=== PATIENT | female | born 1990 | race Caucasian/White ===

== ENCOUNTER 2022-02-27 11:27 | Emergency (ER) | payer OTHER, SELFPAY ==
--- NOTE | ~2022-02-27 | XR_ITS ---
EXAMINATION: XR KNEE, RIGHT CLINICAL INFORMATION: Pain COMPARISON: None TECHNIQUE: Four views of the right knee. FINDINGS: Patella appears high or patella abel. Bone alignment is otherwise normal. No fracture or dislocation is seen. There is mild degenerative change of the medial femoral tibial and patellofemoral joints. There is a small joint effusion. XR/XR knee RT 3V IMPRESSION: Patella abel. Mild degenerative changes. Small joint effusion.
[2022-02-27 11:54] VITALS: BP 168/89; PULSE 61; RESP 19; TEMP 36.6; O2SAT 98; BMI 49.6
[2022-02-27 12:19] LABS: MANUAL DIFF FLAG NO
[2022-02-27 12:21] LABS: Basophils Percent Auto 0.5 % (0-2); Eosinophils Absolute Auto 0.2 X10*3/uL (0.0-0.4); Eosinophils Percent Auto 4.2 % (0-4); Hematocrit 44.8 % (37.0-47.0); Imm Gran Abs Auto 0.01 X10*3/uL (0.00-0.03); Imm Gran Pct Auto 0.2 % (0.0-0.4); Lymphocytes Percent Auto 36.8 % (20-40); Mean Corpuscular HGB Conc 33.5 g/dl (31.0-35.0); Mean Corpuscular Hemoglobin 30.3 pg (27.0-33.0); Mean Corpuscular Volume 90.5 fL (80.0-98.0); Mean Platelet Volume 9.8 fL (9.4-12.3); Monocytes Absolute Auto 0.8 X10*3/uL (0.1-1.2); Monocytes Percent Auto 13.7 % (2-11); Neutrophils Absolute Auto 2.4 x10*3/uL (2.0-8.3); Neutrophils Percent Auto 44.6 % (45-73); Platelet Count 236 X10*3/uL (160-400); Red Blood Count 4.95 X10*6/uL (4.20-5.50); Red Cell Distribution Width 11.7 % (11.0-16.0); White Blood Count 5.5 X10*3/uL (4.8-10.8)
[2022-02-27 12:36] LABS: Anion Gap 10 (12-20); Blood Urea Nitrogen 10 mg/dL (9-16); Calcium 8.9 mg/dL (8.4-10.2); Carbon Dioxide 30 mmol/L (22-29); Chloride 105 mmol/L (96-108); Creatinine Clr Calc Pharmacy 162.1; Estimated Glomerular Filt Rate > 60; Glucose Random 96 mg/dL (60-115); Potassium 4.2 mmol/L (3.3-5.1); Sodium 141 mmol/L (135-145)
[2022-02-27 15:19] VITALS: BP 154/99; PULSE 63; RESP 18; TEMP 36.6; O2SAT 99
--- NOTE | 2022-02-27 16:28 | ED_ITS ---
HPI - General Adult General Chief complaint: General Medical Stated complaint: high blood pressure Time Seen by Provider: 02/27/22 16:28 Source: patient Mode of arrival: ambulatory Limitations: no limitations History of Present Illness HPI narrative: Patient has history of depression no history of hypertension checking her blood pressure for last 1 week on the high side 140/90 today was 174/118 also complaining of mild headache which is diffuse no nausea no vomiting no chest pain or palpitation patient parents have history of hypertension. On arrival in the ER blood pressure recheck was 162/92 patient not on any NSAID no increased stress lately Related Data Previous Rx's Medication Instructions Recorded losartan 50 mg-hydrochlorothiazide 1 tab PO DAILY #30 tabs 02/27/22 12.5 mg tablet Allergies Allergy/AdvReac Type Severity Reaction Status Date / Time amoxicillin Allergy Unknown hives Verified 06/01/18 00:00 Latex Gloves Allergy Unknown rash Uncoded 06/01/18 00:00 Review of Systems Review of Systems: Yes all other systems are reviewed and are negative [facility] Social History Social History Advance Directives: No Advance Directives Information Provided: No Physical Exam ED Vital Signs: Vital Signs - 24 hr 02/27/22 11:54 02/27/22 15:19 Temperature 98 F 97.8 F Pulse Rate 61 63 Respiratory Rate 19 18 Blood Pressure 168/89 H 154/99 H Pulse Oximetry 98 99 Oxygen Delivery Method Room Air Room Air BMI result Body Mass Index 49.6 Appearance: Alert. Oriented X3. No acute distress. Eyes: PERRLA, No Nystagmus ENT: Pharynx normal. Oral Mucosa moist Neck: Normal inspection. Neck supple. CVS: Normal heart rate and rhythm. Pulses normal. Respiratory: No respiratory distress. Equal air entry bilateral, no wheezi ng/rales/rhonchi Abdomen: Soft and nontender. Bowel sounds are present, no mass palpable, no CVA tenderness Skin: Skin warm and dry. Normal skin color. Normal skin turgor. Extremities: No lower extremity edema. No calf tenderness Neuro: Oriented X 3. No motor deficit. No sensory deficit.No cerebellar signs , cranial nerves II-XII intact Medical Decision Making MDM Narrative Medical decision making narrative: Patient Seems like has hypertension with multiple readings on the higher side wi ll start patient on losartan advised to follow-up with PCP Lab Data Lab results reviewed: Yes I reviewed the patient's lab results. Result diagrams: 02/27/22 12:15 02/27/22 12:15 Labs: Lab Results 02/27/22 02/27/22 Range/Units 12:15 12:15 WBC 5.5 (4.8-10.8) X10*3/uL RBC 4.95 (4.20-5.50) X10*6/uL Hgb 15.0 (12.0-16.0) g/dl Hct 44.8 (37.0-47.0) % MCV 90.5 (80.0-98.0) fL MCH 30.3 (27.0-33.0) pg MCHC 33.5 (31.0-35.0) g/dl RDW 11.7 (11.0-16.0) % Plt Count 236 (160-400) X10*3/uL MPV 9.8 (9.4-12.3) fL Immature Gran % (Auto) 0.2 (0.0-0.4) % Neut % (Auto) 44.6 L (45-73) % Lymph % (Auto) 36.8 (20-40) % [place] % (Auto) 13.7 H (2-11) % Eos % (Auto) 4.2 H (0-4) % Baso % (Auto) 0.5 (0-2) % Lymph # (Auto) 2.0 (1.2-4.9) X10*3/uL [place] # (Auto) 0.8 (0.1-1.2) X10*3/uL Eos # (Auto) 0.2 (0.0-0.4) X10*3/uL Baso # (Auto) 0.0 (0.0-0.2) X10*3/uL Abs Immat Gran (auto) 0.01 (0.00-0.03) X10*3/uL Absolute Neuts (auto) 2.4 (2.0-8.3) x10*3/uL Absolute Nucleated RBC 0.000 (0.0-0.012) X10*3/uL Nucleated RBC % (auto) 0.0 (0.0-0.2) /100WBC Sodium 141 (135-145) mmol/L Potassium 4.2 (3.3-5.1) mmol/L Chloride 105 (96-108) mmol/L Carbon Dioxide 30 H (22-29) mmol/L Anion Gap 10 L (12-20) BUN 10 (9-16) mg/dL Creatinine 0.75 (0.5-1.4) mg/dL Estim Creat Clear Calc 162.1 Estimated GFR > 60 Random Glucose 96 (60-115) mg/dL Calcium 8.9 (8.4-10.2) mg/dL Discharge Plan Discharge Clinical Impression: Hypertension Patient Disposition: Home, Self-Care Instructions: Hypertension (ED) Additional Instructions: Decrease salt intake Weight reduction and exercise as advised Start on blood pressure medication and check blood pressure daily should be less than 130/80 Follow up with PCP Prescriptions: New losartan-hydrochlorothiazide 50-12.5 mg tablet 1 tab PO DAILY Qty: 30 0RF
[2022-02-27 17:45] VITALS: BP 154/91; PULSE 59; RESP 16; O2SAT 99
[2022-02-27] MEDS: Losartan Potassium 50 MG TABLET PO (17:48)
== END 2022-02-27 18:03 | disposition home or self-care (01) ==
PROVIDERS: Emergency Provider Internal Medicine; PCP Internal Medicine
DX: I10 Essential (primary) hypertension (principal); M25.561 Pain in right knee
CPT/HCPCS: 36415; 73562; 80048; 85025; 99283; 99284

== ENCOUNTER 2023-02-19 10:30 | Emergency (ER) | payer OTHER, SELFPAY ==
--- NOTE | ~2023-02-19 | CT_ITS ---
CT head/brain wo IV con CLINICAL INFORMATION: Trauma COMPARISON: No prior CT scan available for comparison. TECHNIQUE: Department standard protocol. This CT examination was performed using dose optimization techniques as appropriate, variously including the following: *Automated exposure control *Adjustment of mA and/or kV according to patient size (this includes techniques or standardized protocols for targeted exams where dose is matched to indication/reason for exam; i.e. extremities or head) *Use of iterative reconstruction technique DLP: 704 mGy-cm FINDINGS: CEREBRAL HEMISPHERES: There is no evidence of intra-axial or extra-axial mass, hemorrhage or acute infarct. BRAIN PARENCHYMA: Normal hays-white matter differentiation. SUBDURAL SPACE: No bleed. BASAL GANGLIA AND PINEAL GLAND: Unremarkable VENTRICLES: Symmetric and normal in size. CEREBELLUM AND BRAINSTEM: No space-occupying mass, hemorrhage or acute infarct. CEREBELLOPONTINE ANGLES: No lesion found. ORBITS: No intraorbital mass. VESSELS: Unremarkable SKULL BASE: Unremarkable INCLUDED SINUSES AT SKULL BASE: Clear SKULL AND SKIN: No fracture or bone lesion found. CT/CT head/brain wo IV con IMPRESSION: No CT evidence of intracranial space-occupying mass, bleed or infarct.
--- NOTE | ~2023-02-19 | XR_ITS ---
EXAMINATION: XR CERVICAL SPINE CLINICAL INFORMATION: Neck pain. COMPARISON: None available. TECHNIQUE: 3 views of the cervical spine were obtained. FINDINGS: Nonspecific straightening of the cervical lordosis. Atlantooccipital and atlantoaxial articulations are maintained. No evidence of acute compression deformity or malalignment. Small well corticated osseous fragment at the anterior C5-C6 intervertebral space, favored to represent an osteophyte. Normal appearance of the posterior elements. No prevertebral soft tissue thickening. Included portions of the lung apices are clear. XR/XR cervical spine 3V IMPRESSION: 1. Nonspecific straightening of the cervical lordosis which could be positional or related with muscle spasm. 2. No acute compression deformity or malalignment. If an acute traumatic sequela is highly clinically suspected, recommend correlation with an MRI or CT of the cervical spine as clinically warranted.
--- NOTE | ~2023-02-19 | CT_ITS ---
EXAMINATION: CT cervical spine wo IV con INDICATION INFORMATION: Reason for Exam neck pain, ?osseous finding on neck xray COMPARISON: Cervical spine radiographs 02/19/2027 TECHNIQUE: Noncontrast CT examinations of the cervical spine was performed. Coronal and sagittal images were created for each examination at the technologist workstation. This CT examination was performed using dose optimization techniques as appropriate, variously including the following: *Automated exposure control *Adjustment of mA and/or kV according to patient size (this includes techniques or standardized protocols for targeted exams where dose is matched to indication/reason for exam; i.e. extremities or head) *Use of iterative reconstruction technique DLP: 620 mGy-cm FINDINGS: There is no evidence of acute cervical spine fracture. Vertebral bodies remain normal in height. Loss of the usual cervical spine lordosis. Disc space heights are maintained. No prevertebral soft tissue swelling. No cervical lymphadenopathy. Fluid secretions are noted within the oropharynx. Partial opacification of the visualized right mastoid air cells. Visualized portions of the lung apices are unremarkable. The thyroid gland is unremarkable. Limited views of the brain are unremarkable. CT/CT cervical spine wo IV con IMPRESSION: 1. No cervical spine fracture. 2. Loss of usual cervical spine lordosis which may be due to positioning or muscle spasm.
[2023-02-19 11:52] VITALS: BP 151/112; PULSE 68; RESP 16; TEMP 36.6; O2SAT 96; BMI 48.5
--- NOTE | 2023-02-19 11:55 | ED.GENADULT ---
HPI - General Adult General Chief complaint: Head Injury Stated complaint: Fall/head inj Time Seen by Provider: 02/19/23 13:45 Source: patient and RN notes reviewed Mode of arrival: ambulatory Limitations: no limitations History of Present Illness HPI narrative: This is a 33-year-old female, with a past medical history of hypertension, anxiety, and PTSD, presenting to the emergency department today for evaluation of head injury which occurred during the night last night. Patient reports that she got up at around 4:00 a.m. and tripped over a box and twisted her body and ultimately hit the posterior aspect of her head on a box that contained picture frames. She denies any loss of consciousness. She shortly went to bed afterwards, and woke up this morning with a bad headache, whooziness and nausea. patient denies any visual changes or blurred vision, she reports the wooziness feels as though she is on a boat. Patient denies any vomiting. She is not on anticoagulants. No other complaints or concerns at this time. MD complaint: Head injury Location: head Radiation: non-radiation Severity: moderate Quality: aching Pain Consistency: constant Relieving factors: none Exacerbating factors: none Associated symptoms: denies other symptoms Treatments prior to arrival: none Related Data Previous Rx's Medication Instructions Recorded losartan 50 mg-hydrochlorothiazide 1 tab PO DAILY #30 tabs 02/27/22 12.5 mg tablet cyclobenzaprine 5 mg tablet 5 mg PO TID PRN muscle spasm #10 02/19/23 tabs ibuprofen 600 mg tablet 600 mg PO Q6H PRN pain #30 tabs 02/19/23 Allergies Allergy/AdvReac Type Severity Reaction Status Date / Time amoxicillin Allergy Unknown hives Verified 06/01/18 00:00 Latex Gloves Allergy Unknown rash Uncoded 06/01/18 00:00 Review of Systems Review of Systems: Constitutional: No Weight loss, No Fever, No Chills ENT/Mouth: No Ear Pain, No Nasal Congestion, No Sinus Pain, No Hoarseness, No sore throat, No Rhinorrhea, No Swallowing Difficulty Cardiovascular: No Chest Pain, No SOB Respiratory: No Cough, No Sputum, No Wheezing Gastrointestinal: + Nausea, No Vomiting, No Diarrhea, No Constipation, No Abdominal pain Genitourinary: No Dysuria, No Urinary Frequency, No Hematuria, No Urinary Incontinence/retention, No Urgency, No Flank Pain Musculoskeletal: No joint pain, No Myalgias, No Joint Swelling Skin: No Skin Lesions, No rash Neuro: +headache, No Weakness, No Numbness, No Paresthesias Yes all other systems are reviewed and are negative Constitutional: Constitutional: Reports as per [facility] Social History Social History Alcohol intake: current Alcohol intake frequency: holidays/special occasions only Patient Tobacco Use Status: Never used Tobacco Advance Directives: No Physical Exam ED Vital Signs: Vital Signs - 24 hr 02/19/23 11:52 02/19/23 15:22 Temperature 97.9 F 98 F Pulse Rate 68 57 Respiratory Rate 16 18 Blood Pressure 151/112 H 167/86 H Pulse Oximetry 96 99 Oxygen Delivery Method Room Air Room Air BMI result Body Mass Index 48.5 Const General: cooperative, comfortable and no acute distress Orientation/consciousness: patient oriented x3 Limitations: no limitations HENMT Other: Tenderness to palpation over the occiput, no bony step-off or deformity. Head: Yes normal to inspection, Yes normocephalic, No Demarco's sign and No raccoon eyes Ears: hearing grossly normal bilaterally and TM's normal bilaterally ( no hemotympanum) General nose exam: Normal external nose present Face and sinus: Yes normal facial exam Mouth: Normal oral and palatal mucosa present, oropharynx normal and moist mucous membranes Throat: Yes posterior oropharynx normal Eyes General: appearance normal, both eyes and all related structures Eyelids: Yes eyelids normal Conjunctivae: conjunctivae normal Sclerae: sclerae normal Pupils: Equal, round and reactive pupils present EOM: EOMs intact bilaterally Neck Other: Tenderness to palpation over the left paraspinous muscles with cervical midline spine tenderness to palpation. Neck: Yes normal visual inspection, Yes full ROM and Yes no lymphadenopathy Lymphatic: no lymphadenopathy noted Chest Chest palpation & inspection: normal inspection of the chest Resp Effort & Inspection: normal respiratory effort and able to speak in complete sentences Auscultation: clear to auscultation bilaterally, no crackles, no rales, no rhonchi and no wheezes Cardio Rate: regular rate Rhythm: regular rhythm Heart sounds: S1 normal heart sound present and S2 normal heart sound present GI Inspection: Yes normal to inspection Back/Spine/Pelvis Other: tenderness to palpation along the midline cervical spine, some left-sided cervical paraspinous muscle. tenderness. Patient placed in cervical collar. Skin General skin exam: no rashes or lesions noted Trauma: no lacerations or abrasions Wounds: no wounds Neuro General: patient oriented x3, moves all extremities, no focal motor deficits and CN's II-XI intact bilaterally Cranial nerves: Yes Equal, round and reactive pupils present, Yes Nystagmus not present, Yes Normal facial strength present and Yes Midline tongue present Gait exam (Neuro): Normal gait present Motor exam (neuro): 5/5 motor strength present throughout and Pronator motor function not present Romberg Test: Negative Extrem General: Yes normal to inspection Right upper extremity: normal to inspection Left upper extremity: normal to inspection Right lower extremity: normal to inspection Left lower extremity: normal to inspection Course Course Course Narrative: JOSEPHINE- 33-year-old female past medical history significant for obesity, hypertension presents for evaluation of posterior headache. Patient reports that she tripped last night over a box and struck the back of her head. Denies any loss of consciousness. She complains of posterior headache and ?queasiness, as well as nausea. She is not on any anticoagulation. CT scan of brain ordered. Patient has no C-spine tenderness Reevaluation(s) Reevaluation #1: CT head normal. Patient medicated with Tylenol 975 mg p.o. Given patient having left-sided cervical paraspinous muscle tenderness and midline spine tenderness, and cervical collar placed. Cervical spine x-ray revealing small well corticated osseous fragment at the anterior C5-C6 intervertebral space favored to represent an osteophyte however given recent and neck pain will order CT of the cervical spine for further image of this. Time: 16:26 Reevaluation #2: Cervical spine CT return, no comment made on cervical spine CT, I called radiologist Dr. Higuera, who informed me that this finding was a osteophyte and not a fracture. Discussed these results with patient, discharge patient on muscle relaxers and ibuprofen. Given strict return precautions should her symptoms worsen. Advised good mental and physical rest for the next several days. Patient given good understanding and knowledge of discharge instructions. Patient stable for discharge. Time: 18:27 Medications Administered Discontinued Medications Generic Name Dose Route Start Last Admin Trade Name Freq PRN Reason Stop Dose Admin Acetaminophen 975 mg 02/19/23 15:51 02/19/23 15:54 Acetaminophen 325 Mg Tablet PO 02/19/23 15:52 975 mg ONCE ONE Administration Medical Decision Making Medical Decision Making [facility] Narrative: 33-year-old female presenting to the emergency department for headache and neck pain status post mechanical fall which occurred early this morning. On examination, patient is mildly hypertensive at 151/112. patient has tenderness over occiput, and mild tenderness to palpation over the midline cervical spine, given tenderness, we obtained CT head, x-ray C-spine initially. CT head was unremarkable, there was a osseous finding found on C5-C6. Given traumatic fall, obtain CT of the cervical spine for further imaging, which was unremarkable. Plan: CT head, xr c-spine Differential Diagnosis Differential Diagnoses: The differential diagnosis associated with the presentation includes Closed head injury, concussion, ICH, Cervical spine fracture Lab Data [facility] Lab Attestation statement: I reviewed the patient's lab results. Labs: Lab Results 02/19/23 Range/Units 13:46 Urine Test NEGATIVE (NEGATIVE) Radiology Impression Discussion of test interpretation with radiology: I have reviewed the radiologist's reading. Radiologist Impression: EXAMINATION: ?CT cervical spine wo IV con INDICATION INFORMATION: Reason for Exam neck pain, ?osseous finding on neck xray COMPARISON: Cervical spine radiographs 02/19/2027 TECHNIQUE: Noncontrast CT examinations of the cervical spine was performed. Coronal and sagittal images were created for each examination at the technologist workstation. This CT examination was performed using dose optimization techniques as appropriate, variously including the following: *Automated exposure control *Adjustment of mA and/or kV according to patient size (this includes techniques or standardized protocols for targeted exams where dose is matched to indication/reason for exam; i.e. extremities or head) *Use of iterative reconstruction technique DLP:? 620 mGy-cm FINDINGS: There is no evidence of acute cervical spine fracture. Vertebral bodies remain normal in height.? ? Loss of the usual cervical spine lordosis. Disc space heights are maintained. No prevertebral soft tissue swelling. No cervical lymphadenopathy. Fluid secretions are noted within the oropharynx. Partial opacification of the visualized right mastoid air cells. Visualized portions of the lung apices are unremarkable. The thyroid gland is unremarkable. Limited views of the brain are unremarkable. CT/CT cervical spine wo IV con IMPRESSION: 1.? No cervical spine fracture. 2.? Loss of usual cervical spine lordosis which may be due to positioning or muscle spasm. ? Dictated By: Renetta Higuera MD EXAMINATION: XR CERVICAL SPINE CLINICAL INFORMATION: Neck pain. COMPARISON: None available. TECHNIQUE: 3 views of the cervical spine were obtained. FINDINGS: Nonspecific straightening of the cervical lordosis. Atlantooccipital and atlantoaxial articulations are maintained. No evidence of acute compression deformity or malalignment. Small well corticated osseous fragment at the anterior C5-C6 intervertebral space, favored to represent an osteophyte. Normal appearance of the posterior elements. No prevertebral soft tissue thickening. Included portions of the lung apices are clear. XR/XR cervical spine 3V IMPRESSION: 1.? Nonspecific straightening of the cervical lordosis which could be positional or related with muscle spasm. 2.? No acute compression deformity or malalignment. ? If an acute traumatic sequela is highly clinically suspected, recommend correlation with an MRI or CT of the cervical spine as clinically warranted. ? Dictated By: Rosalee Huerta CT head/brain wo IV con CLINICAL INFORMATION: Trauma COMPARISON: No prior CT scan available for comparison. TECHNIQUE: Department standard protocol. This CT examination was performed using dose optimization techniques as appropriate, variously including the following: *Automated exposure control *Adjustment of mA and/or kV according to patient size (this includes techniques or standardized protocols for targeted exams where dose is matched to indication/reason for exam; i.e. extremities or head) *Use of iterative reconstruction technique DLP: 704 mGy-cm FINDINGS: ? CEREBRAL HEMISPHERES: There is no evidence of intra-axial or extra-axial mass, hemorrhage or acute infarct. BRAIN PARENCHYMA: Normal hays-white matter differentiation. SUBDURAL SPACE: No bleed. BASAL GANGLIA AND PINEAL GLAND: Unremarkable VENTRICLES: Symmetric and normal in size. CEREBELLUM AND BRAINSTEM: No space-occupying mass, hemorrhage or acute infarct. CEREBELLOPONTINE ANGLES: No lesion found. ORBITS: No intraorbital mass. VESSELS: Unremarkable SKULL BASE: Unremarkable INCLUDED SINUSES AT SKULL BASE: Clear SKULL AND SKIN: No fracture or bone lesion found. CT/CT head/brain wo IV con IMPRESSION: No CT evidence of intracranial space-occupying mass, bleed or infarct. ? ? Dictated By: Leela Dominguez MD Discharge Plan Discharge Clinical Impression: Closed head injury, Acute neck pain Patient Disposition: Home, Self-Care Instructions: Concussion (ED), Acute Neck Pain (ED) Additional Instructions: Your x-ray of your neck showed a small osteophyte. This is normal with degenerative changes. Your CT head and CT neck were normal. Physical and mental rest will help you heal faster. Avoid prolonged screen time. Heat or ice, gentle massage and stretching can help with your neck pain. Please take prescribed medication as directed. Please be aware that Flexeril can cause drowsiness, do not drink alcohol or drive while taking. this medication. Take ibuprofen or Tylenol as needed for pain. If any new or worsening symptoms, including but not limited to worsening headaches, vomiting, changes in mentation, dizziness, blurred vision, weakness numbness or tingling. occur please return for re-evaluation. Follow-up with your primary care physician. Prescriptions: New cyclobenzaprine 5 mg tablet 5 mg PO TID PRN (Reason: muscle spasm) Qty: 10 0RF ibuprofen 600 mg tablet 600 mg PO Q6H PRN (Reason: pain) Qty: 30 0RF No Action losartan-hydrochlorothiazide 50-12.5 mg tablet 1 tab PO DAILY Qty: 30 0RF Stand Alone Forms: Work/School Release Interventions: ED Discharge Assessment Last Done: 02/19/23 18:18 Discharge Date/Time: 02/19/23 18:18
[2023-02-19 13:58] LABS: UPreg QC Valid YES
[2023-02-19 13:59] LABS: Urine Pregnancy NEGATIVE (NEGATIVE)
--- NOTE | 2023-02-19 14:17 | PC.NURSE ---
ct complete, pt now in XR
[2023-02-19 15:22] VITALS: BP 167/86; PULSE 57; RESP 18; TEMP 36.6; O2SAT 99
[2023-02-19] MEDS: Acetaminophen 325 MG TABLET 975 MG PO (15:54)
--- NOTE | 2023-02-19 16:29 | PC.NURSE ---
PT PLACED IN C-COLLAR D/T INCIDENTAL FINDING OF FX- WELL TOLERATED BY PT
== END 2023-02-19 18:18 | disposition home or self-care (01) ==
PROVIDERS: Physician Assistant; Emergency Provider Student in an Organized Health Care Education/Training Program
DX: S09.90XA Unspecified injury of head, initial encounter (principal); W01.198A Fall on same level from slipping, tripping and stumbling with subsequent striking against other object, initial encounter; M54.2 Cervicalgia; Y93.89 Activity, other specified; Y92.012 Bathroom of single-family (private) house as the place of occurrence of the external cause; Y99.9 Unspecified external cause status
CPT/HCPCS: 70450; 72040; 72125; 81025; 99284

== ENCOUNTER 2023-02-26 07:07 | Emergency (ER) | payer OTHER, SELFPAY ==
--- NOTE | ~2023-02-26 | CT_ITS ---
EXAMINATION: CT HEAD WITHOUT CONTRAST CLINICAL INFORMATION: Worsening headache COMPARISON: 02/19/2023 TECHNIQUE: Contiguous axial imaging was performed from the skull base to vertex without intravenous administration of contrast. This CT examination was performed using dose optimization techniques as appropriate, variously including the following: *Automated exposure control *Adjustment of mA and/or kV according to patient size (this includes techniques or standardized protocols for targeted exams where dose is matched to indication/reason for exam; i.e. extremities or head) *Use of iterative reconstruction technique DLP: 735 mGy-cm FINDINGS: There is no evidence of acute intracranial hemorrhage or edematous territorial infarction. Riddle-white matter differentiation is preserved. There is no abnormal attenuation within the brain parenchyma. The ventricles are normal in morphology and size. No evidence for obstructive hydrocephalus. No abnormal mass effect or midline shift. No extra-axial fluid collections. No acute soft tissue or osseous abnormalities. The mastoid air cells are well aerated and visualized paranasal sinuses revealed mucosal thickening in the right maxillary sinus with mucus retention cyst in the ostiomeatal complex on the right, mucosal thickening of ethmoidal sinuses, bhupinder bullosa and possible polyposis of the left turbinates. There is deviation of nasal septum to the right. CT/CT head/brain wo IV con IMPRESSION: 1. No acute intracranial pathology. 2. Paranasal sinus disease.
--- NOTE | 2023-02-26 07:18 | ED_ITS ---
HPI - General Adult General Chief complaint: Eye Problems Stated complaint: stabbing pain in L eye going in teeth Time Seen by Provider: 02/26/23 07:18 Source: patient Mode of arrival: ambulatory Limitations: no limitations History of Present Illness HPI narrative: Patient is a 33 year old female with a history of hypertension and migraines presenting today for stabbing pain in the left eye. Patient suffered a co ncussion on 02/19/2023 after tripping and hitting her head directly on a box. She was seen here in the ED and treated with Ibuprofen and muscle relaxants, but has had minimal relief. Patient states that she saw her primary care physician yesterday due to severe pain at the back of her head as well as trouble turning her head and was prescribed a more potent muscle relaxant. Today, she reports changes in pain location; she endorses stabbing pain in her left eye, radiating to her upper teeth. She states that pain is constant and rates it 9/10. She admits to photophobia, nausea, and vision changes. She denies SOB, fever or chills. She reports no other acute concerns at this time. Onset (ago): day(s) (7) Location: head Radiation: other (upper teeth) Severity: mild Quality: stabbing Pain Consistency: constant Relieving factors: none Exacerbating factors: other (light and sound makes pain worse) Associated symptoms: nausea/vomiting Treatments prior to arrival: NSAID and other (muscle relaxer) Related Data Previous Rx's Medication Instructions Recorded losartan 50 mg-hydrochlorothiazide 1 tab PO DAILY #30 tabs 02/27/22 12.5 mg tablet cyclobenzaprine 5 mg tablet 5 mg PO TID PRN muscle spasm #10 02/19/23 tabs ibuprofen 600 mg tablet 600 mg PO Q6H PRN pain #30 tabs 02/19/23 doxycycline hyclate 100 mg tablet 100 mg PO BID 7 days #14 tabs 02/26/23 ondansetron 4 mg disintegrating 4 mg PO Q8H 3 days #9 tabs 02/26/23 tablet Allergies Allergy/AdvReac Type Severity Reaction Status Date / Time amoxicillin Allergy Unknown hives Verified 06/01/18 00:00 Latex Gloves Allergy Unknown rash Uncoded 06/01/18 00:00 Review of Systems Constitutional: Constitutional: Reports no additional constitutional complaints, Denies chills, Denies fever(s) and Denies night sweats Eyes: Eyes: Reports no additional eye complaints, Denies blurry vision, Denies change in vision, Denies diplopia, Denies eye discharge, Denies loss of vision and Denies eye pain ENT: Denies dizziness Cardiovascular: Cardiovascular: Reports no additional cardiovascular complaints, Denies chest pain, Denies lightheadedness, Denies Loss of Consciousness and Denies dyspnea Respiratory: Respiratory: Reports no additional respiratory complaints and Denies dyspnea Gastrointestinal: Gastrointestinal: Reports no additional gastrointestinal complaints, Denies abdominal pain, Denies melena, Denies hematochezia, Denies change in bowel habits and Denies change in stool character Genitourinary: Genitourinary: Denies hematuria, Denies urinary frequency, Denies dysuria, Denies urinary incontinence, Denies urinary hesitancy and Denies urinary urgency Musculoskeletal: Musculoskeletal: Reports no additional musculoskeletal complaints, Denies numbness and Denies tingling Neurologic: Denies dizziness, Denies loss of vision, Denies numbness and Denies tingling Psychiatric: Psychiatric: Reports no additional psychiatric complaints Endocrine: Endocrine: Reports no additional endocrine complaints Hematologic/Lymphatic: Hematologic/Lymphatic: Reports no additional hematologic/lymphatic complaints Allergic/Immunologic: Allergic/Immunologic: Reports no additional allergic/imm unologic complaints PMFSH Past Medical History Attestation statement: The following information was validated with the patient. Source: old records reviewed and nursing notes reviewed Social History Social History Alcohol intake: current Alcohol intake frequency: holidays/special occasions only Patient Tobacco Use Status: Never used Tobacco Advance Directives: No Advance Directives Information Provided: No Physical Exam ED Vital Signs: Vital Signs - 24 hr 02/26/23 07:29 Temperature 97.6 F Pulse Rate 60 Respiratory Rate 18 Blood Pressure 185/113 H Pulse Oximetry 97 Oxygen Delivery Method Room Air BMI result Body Mass Index 48.5 Const General: cooperative, no acute distress, alert and awake Nutritional Appearance: well nourished Orientation/consciousness: patient oriented x3 Limitations: no limitations HENMT Head: Yes normal to inspection and Yes atraumatic Ears: hearing grossly normal bilaterally and external ears normal General nose exam: Normal external nose present and no nasal discharge noted Face and sinus: Yes normal facial exam, No abrasion and No laceration Mouth: Normal oral and palatal mucosa present, no drooling and no muffled voice Eyes General: appearance normal, both eyes and all related structures Alignment and Position: alignment normal Periorbital: periorbital findings normal Eyelids: Yes eyelids normal Conjunctivae: conjunctivae normal Pupils: Equal, round and reactive pupils present EOM: EOMs intact bilaterally Neck Neck: Yes normal visual inspection and Yes full ROM Chest Chest palpation & inspection: normal inspection of the chest Resp Effort & Inspection: normal respiratory effort and able to speak in complete s entences Cardio Rate: regular rate Rhythm: regular rhythm Heart sounds: S1 normal heart sound present and S2 normal heart sound present GI Inspection: Yes normal to inspection Neuro General: patient oriented x3 and moves all extremities Cranial nerves: Yes Equal, round and reactive pupils present Cognition (Neuro): normal cognition Motor exam (neuro): 5/5 motor strength present throughout Sensory Exam: Normal double simultaneous stimulation for sensation Coordination: [id number] test normal Extrem General: Yes normal to inspection, Yes full ROM and Yes capillary refill normal Psych Appearance: grossly normal Mental Status: mental status grossly normal Affect: normal affect Attitude: cooperative Thought process: Normal thought process present Thought content: Normal thought content present Insight: Good insight present (Psych) Medications Administered Discontinued Medications Generic Name Dose Route Start Last Admin Trade Name Nelson PRN Reason Stop Dose Admin Diphenhydramine HCl 25 mg 02/26/23 07:37 02/26/23 07:58 Diphenhydramine Hcl 50 Mg/Ml Vial IVPUSH 02/26/23 07:38 25 mg ONCE ONE Administration Ketorolac Tromethamine 15 mg 02/26/23 09:04 02/26/23 09:21 Ketorolac Tromethamine 15 Mg/Ml Vial IVPUSH 02/26/23 09:05 15 mg ONCE ONE Administration Ondansetron HCl 4 mg 02/26/23 07:37 02/26/23 07:58 Ondansetron Hcl 4 Mg/2 Ml Vial IVPUSH 02/26/23 07:38 4 mg ONCE ONE Administration Medical Decision Making Medical Decision Making [facility] Narrative: Patient is a 33 year old assigned female at with a history of HTN and zander dante presenting to the emergency department today with a persistent headache. Patient's physical exam was unremarkable. No meningeal signs. No focal neurologic deficits. Patient's blood work was unremarkable. Patient's repeat head CT showed no acute bleed however, it did show evidence of sinus disease. I explained my physical exam findings as well as all test results to the patient. I answered all questions asked by the patient. Patient received IV Benadryl, Toradol, and Zofran which she stated helped her symptoms significantly. I stressed the importance of the patient taking her medication as prescribed. I stressed the importance of the patient following up with her primary care provider and an ENT. Patient states that she has her own ENT that she would prefer to follow up with. I stressed the importance of the patient returning to the emergency department immediately if her symptoms were to worsen or if she were to develop any dizziness, shortness of breath, difficulty breathing, chest pain, blurry vision, loss of vision, nausea, vomiting, abdominal pain, fever, chills, back pain, or any other complaints. Patient verbalized agreement and understanding with this treatment plan and discharge. Differential Diagnosis Differential Diagnoses: The differential diagnosis associated with the presentation includes migraine, concussion Admission/Observation Consideration of admission/observation: Escalation of care including admission/observation considered Patient would have been admitted to the hospital had her work up had any findin gs where hospital admission was appropriate. Lab Data MDM Lab Attestation statement: I reviewed the patient's lab results. My interpretation of these studies and their corresponding values is that they are grossly normal. 02/26/23 07:48 02/26/23 07:48 Labs: Lab Results 02/26/23 02/26/23 02/26/23 Range/Units 07:48 07:48 07:48 WBC 6.3 (4.8-10.8) X10*3/uL RBC 4.84 (4.20-5.50) X10*6/uL Hgb 14.6 (12.0-16.0) g/dl Hct 43.9 (37.0-47.0) % MCV 90.7 (80.0-98.0) fL MCH 30.2 (27.0-33.0) pg MCHC 33.3 (31.0-35.0) g/dl RDW 12.1 (11.0-16.0) % Plt Count 211 (160-400) X10*3/uL MPV 9.8 (9.4-12.3) fL Immature Gran % (Auto) 0.2 (0.0-0.4) % Neut % (Auto) 55.6 (45-73) % Lymph % (Auto) 27.4 (20-40) % Sabine % (Auto) 9.8 (2-11) % Eos % (Auto) 6.2 H (0-4) % Baso % (Auto) 0.8 (0-2) % Lymph # (Auto) 1.7 (1.2-4.9) X10*3/uL Sabine # (Auto) 0.6 (0.1-1.2) X10*3/uL Eos # (Auto) 0.4 (0.0-0.4) X10*3/uL Baso # (Auto) 0.1 (0.0-0.2) X10*3/uL Abs Immat Gran (auto) 0.01 (0.00-0.03) X10*3/uL Absolute Neuts (auto) 3.5 (2.0-8.3) x10*3/uL Absolute Nucleated RBC 0.000 (0.0-0.012) X10*3/uL Nucleated RBC % (auto) 0.0 (0.0-0.2) /100WBC ESR 10 (0-20) MM/HR Sodium 141 (135-145) mmol/L Potassium 3.7 (3.3-5.1) mmol/L Chloride 107 (96-108) mmol/L Carbon Dioxide 29 (22-29) mmol/L Anion Gap 9 L (12-20) BUN 11 (9-16) mg/dL Creatinine 0.69 (0.5-1.4) mg/dL Estim Creat Clear Calc 172.2 Estimated GFR > 60 Random Glucose 98 (60-115) mg/dL Calcium 8.9 (8.4-10.2) mg/dL Magnesium 2.0 (1.6-2.6) mg/dL Total Bilirubin 0.7 (0.0-1.0) mg/dL AST 21 (5-31) U/L ALT 32 H (0-31) U/L Alkaline Phosphatase 51 (39-117) U/L C-Reactive Protein 0.24 (< or = 0.50) mg/dL Total Protein 7.2 (6.5-8.0) g/dL Albumin 3.9 (3.5-5.0) g/dL Beta HCG, Quant mIU/mL 02/26/23 Range/Units 07:48 WBC (4.8-10.8) X10*3/uL RBC (4.20-5.50) X10*6/uL Hgb (12.0-16.0) g/dl Hct (37.0-47.0) % MCV (80.0-98.0) fL MCH (27.0-33.0) pg MCHC (31.0-35.0) g/dl RDW (11.0-16.0) % Plt Count (160-400) X10*3/uL MPV (9.4-12.3) fL Immature Gran % (Auto) (0.0-0.4) % Neut % (Auto) (45-73) % Lymph % (Auto) (20-40) % Sabine % (Auto) (2-11) % Eos % (Auto) (0-4) % Baso % (Auto) (0-2) % Lymph # (Auto) (1.2-4.9) X10*3/uL Sabine # (Auto) (0.1-1.2) X10*3/uL Eos # (Auto) (0.0-0.4) X10*3/uL Baso # (Auto) (0.0-0.2) X10*3/uL Abs Immat Gran (auto) (0.00-0.03) X10*3/uL Absolute Neuts (auto) (2.0-8.3) x10*3/uL Absolute Nucleated RBC (0.0-0.012) X10*3/uL Nucleated RBC % (auto) (0.0-0.2) /100WBC ESR (0-20) MM/HR Sodium (135-145) mmol/L Potassium (3.3-5.1) mmol/L Chloride (96-108) mmol/L Carbon Dioxide (22-29) mmol/L Anion Gap (12-20) BUN (9-16) mg/dL Creatinine (0.5-1.4) mg/dL Estim Creat Clear Calc Estimated GFR Random Glucose (60-115) mg/dL Calcium (8.4-10.2) mg/dL Magnesium (1.6-2.6) mg/dL Total Bilirubin (0.0-1.0) mg/dL AST (5-31) U/L ALT (0-31) U/L Alkaline Phosphatase (39-117) U/L C-Reactive Protein (< or = 0.50) mg/dL Total Protein (6.5-8.0) g/dL Albumin (3.5-5.0) g/dL Beta HCG, Quant < 2 mIU/mL Independent Interpretation I performed an independent interpretation of an: CT Scan Interpretation: My interpretation is in agreement with the radiologist's impression of this imaging study. EXAMINATION: CT HEAD WITHOUT CONTRAST CLINICAL INFORMATION: Worsening headache? COMPARISON: 02/19/2023 TECHNIQUE: Contiguous axial imaging was performed from the skull base to vertex without intravenous administration of contrast. This CT examination was performed using dose optimization techniques as appropriate, variously including the following: *Automated exposure control *Adjustment of mA and/or kV according to patient size (this includes techniques or standardized protocols for targeted exams where dose is matched to indication/reason for exam; i.e. extremities or head) *Use of iterative reconstruction technique DLP: 735 mGy-cm FINDINGS: There is no evidence of acute intracranial hemorrhage or edematous territorial infarction. Riddle-white matter differentiation is preserved. There is no abnormal attenuation within the brain parenchyma. The ventricles are normal in morphology and size. No evidence for obstructive hydrocephalus. No abnormal mass effect or midline shift. No extra-axial fluid collections. No acute soft tissue or osseous abnormalities. The mastoid air cells are well aerated and visualized paranasal sinuses revealed mucosal thickening in the right maxillary sinus with mucus retention cyst in the ostiomeatal complex on the right, mucosal thickening of ethmoidal sinuses, bhupinder bullosa and possible polyposis of the left turbinates. There is deviation of nasal septum to the right. ? CT/CT head/brain wo IV con IMPRESSION: 1.? No acute intracranial pathology. 2.? Paranasal sinus disease. Dictated By: Shekhar Maynard MD Signed By: Electronically signed by Shekhar Maynard MD 02/26/23 0898 Discharge Plan Discharge Clinical Impression: Concussion, Sinusitis Patient Disposition: Home, Self-Care Instructions: Sinusitis (ED), Concussion (ED) Additional Instructions: Follow up with your primary care provider and your ENT. Return to the emergency department immediately if your symptoms worsen or if you develop any dizziness, shortness of breath, difficulty breathing, chest pain, blurry vision, loss of vision, nausea, vomiting, abdominal pain, fever, chills, back pain, or any other complaints. Prescriptions: New ondansetron 4 mg tablet,disintegrating 4 mg PO Q8H 3 Days Qty: 9 0RF doxycycline hyclate 100 mg tablet 100 mg PO BID 7 Days Qty: 14 0RF No Action losartan-hydrochlorothiazide 50-12.5 mg tablet 1 tab PO DAILY Qty: 30 0RF cyclobenzaprine 5 mg tablet 5 mg PO TID PRN (Reason: muscle spasm) Qty: 10 0RF ibuprofen 600 mg tablet 600 mg PO Q6H PRN (Reason: pain) Qty: 30 0RF [place]: [facility] [place] [facility] [place] (Call to establish and follow up with a primary care provider. If you already have a primary care provider, please follow up with them.) [facility] [place] [facility] [place] [facility] (Call to establish and follow up w ith a primary care provider. If you already have a primary care provider, please follow up with them.) [facility] [place] [facility] [place]] (Call to establish and follow up with a primary care provider. If you already have a primary care provider, please follow up with them.) Stand Alone Forms: Work/School Release Print Language: Frisian
[2023-02-26 07:29] VITALS: BP 185/113; PULSE 60; RESP 18; TEMP 36.4; O2SAT 97; BMI 48.5
[2023-02-26] MEDS: ondansetron HCL 4 MG/2 ML VIAL IVPUSH (07:58)
[2023-02-26] MEDS: diphenhydrAMINE HCL 50 MG/ML VIAL 25 MG IVPUSH (07:58)
[2023-02-26 08:04] LABS: MANUAL DIFF FLAG NO
[2023-02-26 08:06] LABS: Basophils Absolute Auto 0.1 X10*3/uL (0.0-0.2); Basophils Percent Auto 0.8 % (0-2); Eosinophils Absolute Auto 0.4 X10*3/uL (0.0-0.4); Eosinophils Percent Auto 6.2 % (0-4); Hematocrit 43.9 % (37.0-47.0); Hemoglobin 14.6 g/dl (12.0-16.0); Imm Gran Abs Auto 0.01 X10*3/uL (0.00-0.03); Imm Gran Pct Auto 0.2 % (0.0-0.4); Lymphocytes Absolute Auto 1.7 X10*3/uL (1.2-4.9); Lymphocytes Percent Auto 27.4 % (20-40); Mean Corpuscular HGB Conc 33.3 g/dl (31.0-35.0); Mean Corpuscular Hemoglobin 30.2 pg (27.0-33.0); Mean Corpuscular Volume 90.7 fL (80.0-98.0); Mean Platelet Volume 9.8 fL (9.4-12.3); Monocytes Absolute Auto 0.6 X10*3/uL (0.1-1.2); Monocytes Percent Auto 9.8 % (2-11); Neutrophils Absolute Auto 3.5 x10*3/uL (2.0-8.3); Neutrophils Percent Auto 55.6 % (45-73); Platelet Count 211 X10*3/uL (160-400); Red Blood Count 4.84 X10*6/uL (4.20-5.50); Red Cell Distribution Width 12.1 % (11.0-16.0); White Blood Count 6.3 X10*3/uL (4.8-10.8)
[2023-02-26 08:25] LABS: Alanine Aminotransferase 32 U/L (0-31); Albumin Level 3.9 g/dL (3.5-5.0); Alkaline Phosphatase 51 U/L (39-117); Anion Gap 9 (12-20); Aspartate Amino Transferase 21 U/L (5-31); Bilirubin Total 0.7 mg/dL (0.0-1.0); Blood Urea Nitrogen 11 mg/dL (9-16); C Reactive Protein 0.24 mg/dL (< or = 0.50); Calcium 8.9 mg/dL (8.4-10.2); Carbon Dioxide 29 mmol/L (22-29); Chloride 107 mmol/L (96-108); Creatinine Clr Calc Pharmacy 172.2; Estimated Glomerular Filt Rate > 60; Glucose Random 98 mg/dL (60-115); Potassium 3.7 mmol/L (3.3-5.1); Sodium 141 mmol/L (135-145); Total Protein 7.2 g/dL (6.5-8.0)
[2023-02-26 08:34] LABS: HCG Quantitative < 2 mIU/mL
[2023-02-26 08:44] LABS: Erythrocyte Sedimentation Rate 10 MM/HR (0-20)
[2023-02-26] MEDS: Ketorolac Tromethamine 15 MG/ML VIAL IVPUSH (09:21)
== END 2023-02-26 10:07 | disposition home or self-care (01) ==
PROVIDERS: Physician Assistant Medical; Emergency Provider Internal Medicine
DX: S06.0X0A Concussion without loss of consciousness, initial encounter (principal); W01.198A Fall on same level from slipping, tripping and stumbling with subsequent striking against other object, initial encounter; Y93.9 Activity, unspecified; Y92.9 Unspecified place or not applicable; Y99.9 Unspecified external cause status; J32.9 Chronic sinusitis, unspecified; I10 Essential (primary) hypertension; H57.12 Ocular pain, left eye; G43.909 Migraine, unspecified, not intractable, without status migrainosus
CPT/HCPCS: 36415; 70450; 80053; 83735; 84702; 85025; 85652; 86140; 96374; 96375; 99284; J1200; J1885; J2405

== ENCOUNTER 2023-03-30 22:45 | Emergency (ER) | payer OTHER, SELFPAY ==
--- NOTE | 2023-03-30 | ECG_ITS ---
Test Reason : HTN Blood Pressure : / mmHG Vent. Rate : 065 BPM Atrial Rate : 065 BPM P-R Int : 164 ms QRS Dur : 092 ms QT Int : 392 ms P-R-T Axes : 042 030 043 degrees QTc Int : 407 ms Normal sinus rhythm with sinus arrhythmia Normal ECG No previous ECGs available Referred By: Generic ED Physician Electronically Signed By:Ajay Dugan
--- NOTE | ~2023-03-30 | XR_ITS ---
EXAMINATION: XR CHEST CLINICAL INFORMATION: Hypertension COMPARISON: None available. TECHNIQUE: Frontal view of the chest was obtained. FINDINGS: Heart size upper limits of normal. No other abnormality is noted involving the heart, lungs, mediastinum, bony thorax or soft tissues. XR/XR chest 1V IMPRESSION: No acute intrathoracic disease.
[2023-03-30 22:50] VITALS: BP 190/117; PULSE 71; RESP 18; TEMP 36.1; O2SAT 97; BMI 48.7
[2023-03-30 23:13] LABS: Basophils Absolute Auto 0.1 X10*3/uL (0.0-0.2); Basophils Percent Auto 0.7 % (0-2); Eosinophils Absolute Auto 0.5 X10*3/uL (0.0-0.4); Eosinophils Percent Auto 5.5 % (0-4); Hematocrit 42.5 % (37.0-47.0); Hemoglobin 14.1 g/dl (12.0-16.0); Imm Gran Abs Auto 0.02 X10*3/uL (0.00-0.03); Imm Gran Pct Auto 0.2 % (0.0-0.4); Lymphocytes Absolute Auto 2.5 X10*3/uL (1.2-4.9); Lymphocytes Percent Auto 27.7 % (20-40); MANUAL DIFF FLAG NO; Mean Corpuscular HGB Conc 33.2 g/dl (31.0-35.0); Mean Corpuscular Hemoglobin 30.1 pg (27.0-33.0); Mean Corpuscular Volume 90.8 fL (80.0-98.0); Mean Platelet Volume 9.7 fL (9.4-12.3); Monocytes Absolute Auto 1.1 X10*3/uL (0.1-1.2); Monocytes Percent Auto 12.1 % (2-11); Neutrophils Absolute Auto 4.9 x10*3/uL (2.0-8.3); Neutrophils Percent Auto 53.8 % (45-73); Platelet Count 228 X10*3/uL (160-400); Red Blood Count 4.68 X10*6/uL (4.20-5.50); Red Cell Distribution Width 11.9 % (11.0-16.0); White Blood Count 9.1 X10*3/uL (4.8-10.8)
[2023-03-30 23:32] LABS: Alanine Aminotransferase 34 U/L (0-31); Albumin Level 3.8 g/dL (3.5-5.0); Alkaline Phosphatase 59 U/L (39-117); Anion Gap 13 (12-20); Aspartate Amino Transferase 20 U/L (5-31); Bilirubin Total 0.3 mg/dL (0.0-1.0); Blood Urea Nitrogen 14 mg/dL (9-16); Calcium 9.2 mg/dL (8.4-10.2); Carbon Dioxide 26 mmol/L (22-29); Chloride 106 mmol/L (96-108); Creatinine Clr Calc Pharmacy 167.6; Estimated Glomerular Filt Rate > 60; Glucose Random 88 mg/dL (60-115); Potassium 3.5 mmol/L (3.3-5.1); Sodium 141 mmol/L (135-145); Total Protein 6.9 g/dL (6.5-8.0)
[2023-03-30 23:40] LABS: Troponin-I High Sensitivity < 2.7 ng/L (<3.5-17.0)
[2023-03-31 00:10] VITALS: BP 177/102; PULSE 64; RESP 17; TEMP 36.9; O2SAT 97
--- NOTE | 2023-03-31 00:26 | ED.GENADULT ---
HPI - General Adult General Chief complaint: General Medical Stated complaint: high bp/anxiety Time Seen by Provider: 03/30/23 23:52 Source: patient Mode of arrival: ambulatory Limitations: no limitations History of Present Illness HPI narrative: 33-year-old female with history of essential hypertension, anxiety patient takes amlodipine 2.5 mg daily and losartan 100 mg daily patient not compliant with her medication did not take her medicine for few months came in today for evaluation of persistent hypertension for the past 2 days, patient has record of blood pressure reading at home for the past 2 days which overall read high value blood pressure specifically diastolic above 100. Patient also been complaining of left arm pain that she thinks she slipped on it pain of the left arm has been constant all day today more with moving the left arm. Patient also is asthmatic has been using albuterol for wheezing. No CP, no SOB. Related Data Previous Rx's Medication Instructions Recorded losartan 50 mg-hydrochlorothiazide 1 tab PO DAILY #30 tabs 02/27/22 12.5 mg tablet cyclobenzaprine 5 mg tablet 5 mg PO TID PRN muscle spasm #10 02/19/23 tabs ibuprofen 600 mg tablet 600 mg PO Q6H PRN pain #30 tabs 02/19/23 doxycycline hyclate 100 mg tablet 100 mg PO BID 7 days #14 tabs 02/26/23 ondansetron 4 mg disintegrating 4 mg PO Q8H 3 days #9 tabs 02/26/23 tablet amlodipine 2.5 mg tablet 2.5 mg PO DAILY #20 tabs 03/31/23 Allergies Allergy/AdvReac Type Severity Reaction Status Date / Time amoxicillin Allergy Unknown hives Verified 03/30/23 22:50 Latex Gloves Allergy Unknown rash Uncoded 06/01/18 00:00 Review of Systems Review of Systems: All other systems are reviewed and are negative Constitutional: Reports as per HPI and Reports no additional constitutional complaints Eyes: Reports as per HPI and Reports no additional eye complaints Reports system reviewed and no additional complaints, except as documented Cardiovascular: Reports as per HPI and Reports no additional cardiovascular complaints Respiratory: Reports as per HPI and Reports no additional respiratory complaints Gastrointestinal: Reports as per HPI and Reports no additional gastrointestinal complaints Genitourinary: Reports no additional female genitourinary complaints Musculoskeletal: Reports no additional musculoskeletal complaints Skin/Breast: Reports system reviewed and no additional complaints, except as docu Psychiatric: Reports no additional psychiatric complaints Endocrine: Reports no additional endocrine complaints Hematologic/Lymphatic: Reports no additional hematologic/lymphatic complaints Allergic/Immunologic: Reports no additional allergic/immunologic complaints Reports system reviewed and no additional complaints, except as documented and Reports Abnormal speech present [facility] Social History Social History Alcohol intake: current Alcohol intake frequency: holidays/special occasions only Patient Tobacco Use Status: Never used Tobacco Advance Directives: No Advance Directives Information Provided: No Physical Exam ED Vital Signs: Vital Signs - 24 hr 03/30/23 22:50 03/31/23 00:10 Temperature 97.0 F 98.5 F Pulse Rate 71 64 Respiratory Rate 18 17 Blood Pressure 190/117 H 177/102 H Pulse Oximetry 97 97 Oxygen Delivery Method Room Air Room Air BMI result Body Mass Index 48.7 Vital signs have been reviewed as appeared to be correct. Blood pressure normal. Heart rate normal. Respiration rate normal. Temperature normal. Oxygen saturation normal. Appearance: Anxious, Alert. Oriented X3. No acute distress. Head: Normal external exam. Normocephalic. Atraumatic. No Demarco signs noted. No raccoon eyes noted Eyes: PERRLA. EOMI. Conjunctiva and sclera normal. Eyelids normal. ENT: TM's Normal. Pharynx normal. Uvula midline. Moist mucous membranes. No trismus noted. No drooling noted. No muffled voice noted. Neck: Normal inspection. Neck supple. FROM. No adenopathy. Thyroid Normal. No meningeal signs. No neck mass noted. CVS: Normal heart rate and rhythm. Heart sound normal. No murmurs noted. Pulses normal throughout. Respiratory: No respiratory distress. Painless inspiration. Breath sounds normal. No wheezes/rales/rhonchi noted. Chest nontender. No accessory muscle usage noted or decreased air movement noted. Abdomen: Soft and nontender. Bowel sounds normal in all 4 quadrants. No distention noted. No organomegaly noted. No visible injury noted. Back: No CVA tenderness. Full range of motion noted. Skin: Skin warm and dry. Normal skin color. Normal skin turgor. No rashes/lesions/lacerations noted. Extremities: No lower extremity edema. Extremities exhibit normal range of motion. Extremities nontender. Neuro: Oriented X 3. Cranial nerve exam: II-XII are grossly intact No motor deficit. No sensory deficit. Reflexes normal. Course Course Course Narrative: History of anxiety, noncompliant with blood pressure medication, I discussed with the patient at length risk of not controlling blood pressure, patient has a refill for losartan but no refill for amlodipine I will send a prescription for amlodipine refill for 2 weeks patient should be able to follow-up with her PCP in a week. Patient has unremarkable EKG, chest x-ray, and labs including troponin. Medical Decision Making Differential Diagnosis Differential Diagnoses: The differential diagnosis associated with the presentation includes (ACS, electrolyte abnormality, essential hypertension, severe anemia.) Admission/Observation Consideration of admission/observation: Escalation of care including admission/observation considered Lab Data MDM Lab Attestation statement: I reviewed the patient's lab results. 03/30/23 23:08 03/30/23 23:08 Labs: Lab Results 03/30/23 03/30/23 03/30/23 Range/Units 23:08 23:08 23:08 WBC 9.1 (4.8-10.8) X10*3/uL RBC 4.68 (4.20-5.50) X10*6/uL Hgb 14.1 (12.0-16.0) g/dl Hct 42.5 (37.0-47.0) % MCV 90.8 (80.0-98.0) fL MCH 30.1 (27.0-33.0) pg MCHC 33.2 (31.0-35.0) g/dl RDW 11.9 (11.0-16.0) % Plt Count 228 (160-400) X10*3/uL MPV 9.7 (9.4-12.3) fL Immature Gran % (Auto) 0.2 (0.0-0.4) % Neut % (Auto) 53.8 (45-73) % Lymph % (Auto) 27.7 (20-40) % [place] % (Auto) 12.1 H (2-11) % Eos % (Auto) 5.5 H (0-4) % Baso % (Auto) 0.7 (0-2) % Lymph # (Auto) 2.5 (1.2-4.9) X10*3/uL [place] # (Auto) 1.1 (0.1-1.2) X10*3/uL Eos # (Auto) 0.5 H (0.0-0.4) X10*3/uL Baso # (Auto) 0.1 (0.0-0.2) X10*3/uL Abs Immat Gran (auto) 0.02 (0.00-0.03) X10*3/uL Absolute Neuts (auto) 4.9 (2.0-8.3) x10*3/uL Absolute Nucleated RBC 0.000 (0.0-0.012) X10*3/uL Nucleated RBC % (auto) 0.0 (0.0-0.2) /100WBC Sodium 141 (135-145) mmol/L Potassium 3.5 (3.3-5.1) mmol/L Chloride 106 (96-108) mmol/L Carbon Dioxide 26 (22-29) mmol/L Anion Gap 13 (12-20) BUN 14 (9-16) mg/dL Creatinine 0.71 (0.5-1.4) mg/dL Estim Creat Clear Calc 167.6 Estimated GFR > 60 Random Glucose 88 (60-115) mg/dL Calcium 9.2 (8.4-10.2) mg/dL Total Bilirubin 0.3 (0.0-1.0) mg/dL AST 20 (5-31) U/L ALT 34 H (0-31) U/L Alkaline Phosphatase 59 (39-117) U/L Troponin I High Sens < 2.7 (<3.5-17.0) ng/L Total Protein 6.9 (6.5-8.0) g/dL Albumin 3.8 (3.5-5.0) g/dL Independent Interpretation I performed an independent interpretation of an: EKG (Normal sinus rhythm at 65 beats per minute, normal axis deviation, normal intervals, no ST-T changes.) and Plain X-Ray (Chest: No acute intrathoracic pathology.) Radiology Impression Discussion of test interpretation with radiology: I have reviewed the radiologist's reading. Chronic Conditions Patient?s care impacted by: Hypertension Discharge Plan Discharge Clinical Impression: Essential hypertension Patient Disposition: Home, Self-Care Instructions: Hypertension (ED) Additional Instructions: Follow-up with your PCP for further evaluation and monitoring of your blood pressure. Prescriptions: New amlodipine 2.5 mg tablet 2.5 mg PO DAILY Qty: 20 0RF No Action losartan-hydrochlorothiazide 50-12.5 mg tablet 1 tab PO DAILY Qty: 30 0RF ondansetron 4 mg tablet,disintegrating 4 mg PO Q8H 3 Days Qty: 9 0RF doxycycline hyclate 100 mg tablet 100 mg PO BID 7 Days Qty: 14 0RF cyclobenzaprine 5 mg tablet 5 mg PO TID PRN (Reason: muscle spasm) Qty: 10 0RF ibuprofen 600 mg tablet 600 mg PO Q6H PRN (Reason: pain) Qty: 30 0RF
[2023-03-31 00:53] VITALS: BP 175/100; PULSE 80
[2023-03-31] MEDS: amLODIPine Besylate 10 MG TABLET PO (01:08)
[2023-03-31] MEDS: Losartan Potassium 25 MG TABLET PO (01:19)
[2023-03-31 02:09] VITALS: BP 162/102; PULSE 69; RESP 19; TEMP 36.8; O2SAT 98
== END 2023-03-31 02:13 | disposition home or self-care (01) ==
PROVIDERS: Emergency Provider Emergency Medicine
DX: F41.1 Generalized anxiety disorder (principal); I49.9 Cardiac arrhythmia, unspecified; I10 Essential (primary) hypertension; Z91.148 Patient's other noncompliance with medication regimen for other reason; Z79.899 Other long term (current) drug therapy
CPT/HCPCS: 36415; 71045; 80053; 84484; 85025; 93005; 99284

== ENCOUNTER → 2023-03-30 22:59 | Outpatient (BNV) | payer OTHER, SELFPAY | PROVIDERS: Emergency Provider Emergency Medicine; Visit Provider Internal Medicine Cardiovascular Disease | DX: I10 Essential (primary) hypertension (principal) | CPT/HCPCS: 93010 ==

== ENCOUNTER 2023-09-16 14:42 | Outpatient (AMB) | payer OTHER, SELFPAY ==
--- NOTE | 2023-09-16 14:50 | MHC.OFFVIS ---
Intake Vital Signs 09/16/23 14:51 Height 5 ft 7 in Weight 334 lb BMI 52.3 BP 164/80 H Blood Pressure Location Rt brachial Position Sitting Pulse 73 Pulse Source Pulse Oximeter Pulse Oximetry (%) 96 Oxygen Delivery Method Room Air Intake Visit Reasons: Asthma Sedimentationist Required: No Negative Cutter: Negative Cutter offered & declined Accompanied by: Self / Same As Patient Allergies amoxicillin Allergy (Unknown, Verified 09/16/23 14:53) hives Latex Gloves Allergy (Unknown, Uncoded 09/16/23 14:53) rash Medication List - Last Reconciled 09/16/23 by Soheila Mercado LPN albuterol sulfate 90 mcg/actuation 2 puffs inhalation Q6H PRN amlodipine 2.5 mg PO DAILY citalopram 20 mg PO DAILY fluticasone propion-salmeterol 250-50 mcg/dose (Advair Diskus) 1 inh inhalation BID fluticasone propionate 50 mcg/actuation 1 inh inhalation BID losartan 100 mg PO DAILY HPI Asthma HPI Details Ju is a pleasant 33 year old female, never smoker, with underlying asthma, GERD and HTN. She was referred by PCP for pulmonary evaluation. She reports worsening control after an URI in June and influenza in July. She was evaluated in the ED at [facility] and [facility], teated with doxycyline, symptoms persisted and prescribed bactrim. She has also been prescribed 4 courses of prednisone from June and finished last course two weeks ago. During this time she was also out of her pulmicort for a week. On August 29 she had a chest CT which was reportedly unremarkable. Will attempt to obtain. She continues to report intermittent wheezing, chest tightness, dyspnea with moderate exertion however does report coughing less frequently and is now dry. She was recently switched from Pulmicort to Advair. She has been using her nebulizer and duoneb less frequently since switching, but continues to use on a daily basis. She reports multiple family members with asthma. She reports seasonal allergies, managed with antihistamines and nasal spray. She does have a cat at home.She also reports loud snoring, morning headaches, daytime somnolence and paroxysmal nocturnal dyspnea. She denies prior sleep study. [facility] Social History (Updated 09/16/23 @ 14:59 by Soheila Mercado LPN) Alcohol intake: current Alcohol intake frequency: holidays/special occasions only Patient Tobacco Use Status: Never used Tobacco Smoked in Last 30 Days: No Review of Systems Const Denies chills, Denies excessive sweating, Denies fever(s), Denies headache(s) and Denies night sweats Eyes Denies dry eyes, Denies irritation and Denies itchy eyes ENT Reports Normal hearing present, Denies headache(s) and Denies sore throat Card Denies chest pain, Denies chest pain at rest, Denies chest pain with activity, Denies claudication, Denies leg edema, Denies orthopnea and Denies paroxysmal nocturnal dyspnea Resp Denies excessive phlegm production, Denies pain on inspiration, Denies pain with cough and Denies stridor Musc Denies myalgias Neuro Reports Normal hearing present and Denies headache(s) Endo Denies excessive sweating Jose/Lymph Denies lymphadenopathy Aller/Immun Denies itchy eyes Physical Exam Vital Signs: Last Vital Signs Pulse 73 09/16/23 14:51 BP 164/80 H 09/16/23 14:51 Pulse Ox 96 09/16/23 14:51 Oxygen Delivery Method Room Air 09/16/23 14:51 BMI result Body Mass Index 52.3 Const General: cooperative, healthy appearing, comfortable, no acute distress, well developed and alert Nutritional Appearance: obese Orientation/consciousness: patient oriented x3 Limitations: no limitations HEENT Head: Yes normal to inspection, Yes normocephalic and Yes atraumatic Ears: hearing grossly normal bilaterally and external ears normal Eyes General: appearance normal, both eyes and all related structures Eyelids: Yes eyelids normal Sclerae: sclerae normal EOM: EOMs intact bilaterally Neck Neck: Yes normal visual inspection and Yes no lymphadenopathy Lymphatic: no lymphadenopathy noted Chest Chest palpation & inspection: normal inspection of the chest Resp Effort & Inspection: normal respiratory effort, able to speak in complete sentences, no audible wheezes, no cough, no stridor, not tachypneic, no tripod positioning and no use of accessory muscles Auscultation: clear to auscultation bilaterally Cardio Jugular venous distension: no JVD Rate: regular rate Rhythm: regular rhythm Skin Other: warm, dry General skin exam: no rashes or lesions noted Neuro General: patient oriented x3 Cranial nerves: Yes Normal hearing present Cognition (Neuro): normal cognition Gait exam (Neuro): Normal gait present Extrem General: Yes normal to inspection, Yes capillary refill normal, Yes no clubbing, cyanosis or edema and Yes no pedal edema Psych Appearance: grossly normal and well kempt Speech and movement: Normal speech and movement present and Clear speech present Affect: normal affect Attitude: cooperative Thought process: Normal thought process present Thought content: Normal thought content present Insight: Good insight present (Psych) Judgement: Good judgement present (Psych) Assessment & Plan Assessment & Plan (1) Asthma: Code(s): J45.909 - Unspecified asthma, uncomplicated (2) Daytime somnolence: Code(s): R40.0 - Somnolence (3) Environmental allergies: Code(s): Z91.09 - Other allergy status, other than to drugs and biological substances Plan Ju's symptoms are likely related to underlying asthma. Will send for PFT and RAST to evaluate. Advised to continue Advair as she recently switched from Pulmicort. Will attempt to obtain chest CT performed at [facility]. Patient also reported symptoms suggestive of JLILIAN, will send for home sleep study. All questions were answered and patient is in agreement of plan. Will follow up to review results and response to inhaler. Orders: Orders Complete Blood Count Auto Diff 09/16/23 Z91.09 - Other allergy status, other than to drugs and biological substances Resp Allergy Profile Region I 09/16/23 PFT pulmonary function test 09/16/23 J45.909 - Unspecified asthma, uncomplicated RT home sleep study 09/16/23 R40.0 - Somnolence Immunoglobulin E 09/16/23 Z91.09 - Other allergy status, other than to drugs and biological substances Coding Level of Care Code New Pt Level 4 (68140) Diagnoses Asthma J45.909 Daytime somnolence R40.0 Environmental allergies Z91.09
[2023-09-16 14:51] VITALS: BP 164/80; PULSE 73; O2SAT 96; BMI 52.3
== END 2023-09-16 15:39 | disposition home or self-care (01) ==
PROVIDERS: Visit Provider Nurse Practitioner Family
DX: J45.909 Unspecified asthma, uncomplicated (principal); R40.0 Somnolence; Z91.09 Other allergy status, other than to drugs and biological substances
CPT/HCPCS: 99204

== ENCOUNTER → 2023-09-16 14:42 | Outpatient (BNVA) | payer OTHER, SELFPAY | PROVIDERS: Visit Provider Nurse Practitioner Family ==